=== PATIENT | female | born 1940 | race Caucasian/White ===

== ENCOUNTER 2018-01-19 19:32 | Emergency (ER) | payer MEDICAID ==
[~2018-01-19] VITALS: Ht 152.4 cm; Wt 80.7 kg
[~2018-01-19 19:32] MED LIST: AMOXICILLIN 50500 MG PO; LIDOCAINE VISC100 M1 SWISH&SPIT; MOBIC15 MG PO; NOHOMEMEDICATIONS; NORCO 5-325 TA1 EACH; PERCOCET 5-3251 EACH PO; TRAMADOL 50 MG50 MG PO; VICODIN 5-3001 EACH PO
[2018-01-19 19:53] LABS: URINE BILIRUBIN NEGATIVE (Negative); URINE BLOOD NEGATIVE (Negative); URINE CLARITY CLEAR; URINE COLOR YELLOW; URINE GLUCOSE-RANDOM NEGATIVE (Negative); URINE KETONES TRACE (Negative); URINE LEUKOCYTES-REFLEX NEGATIVE (Negative); URINE NITRITE-REFLEX NEGATIVE (Negative); URINE PROTEIN NEGATIVE (Negative); URINE SPECIFIC GRAVITY >= 1.030 (1.005-1.030); URINE UROBILINOGEN 0.2 E.U./dl (0.2-1.0)
[2018-01-19 20:07] LABS: ABSOLUTE MONOCYTES 0.4 thou/uL (0.0-1.2); ABSOLUTE NEUTROPHILS 3.8 thou/uL (1.6-8.1); BASOPHILS 0.6 %; HEMATOCRIT 36.4 % (37.0-47.0); HEMOGLOBIN 12.3 gm/dL (12.0-15.0); LYMPHOCYTES 41.8 %; MCH 29.3 pg (26.0-34.0); MCHC 33.8 g/dL (28.0-37.0); MCV 86.7 fL (80.0-100.0); MPV 8.5 fl. (7.2-11.1); NUCLEATED RBCS 0 /100WBC; PLATELET COUNT* 242 thou/uL (150-400); POLYS 51.6 %; RDW-CV 13.4 % (10.5-14.5); WBC 7.3 thou/uL (4.0-11.0)
[2018-01-19 20:15] LABS: CALCIUM 8.4 mg/dL (8.5-10.1); CREATININE 0.9 mg/dL (0.6-1.3); POTASSIUM 3.6 mmol/L (3.5-5.1)
[2018-01-19 20:19] LABS: ALBUMIN 3.9 g/dL (3.4-5.0); TOTAL BILIRUBIN 0.2 mg/dL (<0.1-1.0)
[2018-01-19] MEDS ORDERED: HYDROCODONE-AP1 EAC6 PO (21:27)
[2018-01-19] MEDS ORDERED: PHENERGAN 25 MG25 M1 PO (21:29)
[2018-01-19 21:47] VITALS: BP 189/101
== END 2018-01-19 21:48 | disposition home or self-care (01) ==
LOC: M.ERS 19:32
PROVIDERS: Physician Assistant
DX: R10.9 Unspecified abdominal pain (principal); M25.552 Pain in left hip; Z85.3 Personal history of malignant neoplasm of breast

== ENCOUNTER 2020-02-02 20:40 | Emergency (ER) | payer MEDICAID, MEDICARE ==
[~2020-02-02] VITALS: Ht 144.8 cm; Wt 72.6 kg
[~2020-02-02 20:40] MED LIST changes: +HYDROCODONE-AP1 EAC6 PO; +PHENERGAN 25 MG25 M1 PO
[2020-02-02 21:26] LABS: ABSOLUTE LYMPHOCYTES 2.4 thou/uL (0.8-5.3); ABSOLUTE MONOCYTES 0.4 thou/uL (0.0-1.2); ABSOLUTE NEUTROPHILS 2.8 thou/uL (1.6-8.1); BASOPHILS 0.5 %; HEMATOCRIT 37.2 % (37.0-47.0); HEMOGLOBIN 12.9 gm/dL (12.0-15.0); LYMPHOCYTES 41.9 %; MCH 29.3 pg (26.0-34.0); MCHC 34.6 g/dL (28.0-37.0); MCV 84.7 fL (80.0-100.0); MONOCYTES 7.9 %; MPV 8.5 fl. (7.2-11.1); NUCLEATED RBCS 0 /100WBC; PLATELET COUNT* 260 thou/uL (150-400); POLYS 49.7 %; RBC 4.39 mil/uL (4.20-5.00); RDW-CV 14.4 % (10.5-14.5); WBC 5.7 thou/uL (4.0-11.0)
[2020-02-02 21:30] LABS: CALCIUM 8.5 mg/dL (8.5-10.1); CREATININE 0.7 mg/dL (0.6-1.3); POTASSIUM 3.2 mmol/L (3.5-5.1)
[2020-02-02 21:35] LABS: APTT 22.8 Seconds (25.0-31.3)
[2020-02-02 21:40] LABS: ALBUMIN 4.2 g/dL (3.4-5.0); TOTAL BILIRUBIN 0.3 mg/dL (<0.1-1.0); TOTAL PROTEIN 7.6 g/dL (6.4-8.2)
[2020-02-02 22:25] VITALS: BP 177/98
--- NOTE | 2020-02-04 10:21 | EKG ---
[place] [address] ELECTROCARDIOGRAM REPORT Name: LUCY PERERA Room: [facility]#: [id number] Admission: 02/02/20 Attend Phys: Discharge: 02/02/20 Date of : 40 Date of Service: 02/02/202050 Report #: [id number] THIS REPORT FOR: //name// [facility] ED Test Date: 2020-02-02 Test Time: 20:51:33 Pat Name: LUCY PERERA Department: Room: Gender: F Molding Machine Setter: ANTONY : 1940 Requested By: Cheng Ortiz Order Number: [id number] MD: Mike Bingham Measurements Intervals [place] Rate: 84 P: 49 CT: 157 QRS: 8 QRSD: 92 T: 35 QT: 411 QTc: 486 Interpretive Statements Sinus rhythm Ventricular premature complex Abnormal R-wave progression, early transition Borderline prolonged QT interval Compared to ECG 03/15/2014 17:23:04 Ventricular premature complex(es) now present Electronically Signed On 02-04-2020 10:20:27 CDT by Mike Bingham [email or web address] <ELECTRONICALLY SIGNED> By: Mike Bingham MD, [facility] 02/04/20 1020 50 50 Mike Bingham MD, [facility] /EPI
== END 2020-02-02 22:25 | disposition home or self-care (01) ==
LOC: M.ERS 20:40
PROVIDERS: Family Medicine
DX: F41.9 Anxiety disorder, unspecified (principal); R06.02 Shortness of breath; I10 Essential (primary) hypertension; Z85.3 Personal history of malignant neoplasm of breast

== ENCOUNTER 2020-08-14 16:03 | Inpatient (IN) | payer MEDICAID ==
[~2020-08-14] VITALS: Ht 162.6 cm; Wt 73.9 kg
[2020-08-14 16:10] VITALS: BP 143/77
[2020-08-14 16:37] LABS: ABSOLUTE LYMPHOCYTES 4.1 thou/uL (0.8-5.3); ABSOLUTE MONOCYTES 0.5 thou/uL (0.0-1.2); ABSOLUTE NEUTROPHILS 3.6 thou/uL (1.6-8.1); BASOPHILS 0.4 %; HEMATOCRIT 38.6 % (37.0-47.0); HEMOGLOBIN 13.1 gm/dL (12.0-15.0); LYMPHOCYTES 50.3 %; MCH 29.3 pg (26.0-34.0); MCV 86.1 fL (80.0-100.0); MPV 8.6 fl. (7.2-11.1); NUCLEATED RBCS 0 /100WBC; PLATELET COUNT* 232 thou/uL (150-400); POLYS 43.3 %; RBC 4.48 mil/uL (4.20-5.00); RDW-CV 14.9 % (10.5-14.5); WBC 8.2 thou/uL (4.0-11.0)
[2020-08-14 16:46] LABS: CALCIUM 8.9 mg/dL (8.5-10.1); CREATININE 0.8 mg/dL (0.6-1.3); POTASSIUM 3.1 mmol/L (3.5-5.1)
[2020-08-14 16:57] LABS: ALBUMIN 4.4 g/dL (3.4-5.0); MAGNESIUM 1.8 mg/dL (1.8-2.4); TOTAL BILIRUBIN 0.3 mg/dL (<0.1-1.0); TOTAL PROTEIN 7.7 g/dL (6.4-8.2)
[2020-08-14 22:59] VITALS: BP 186/86
[2020-08-14 23:03] VITALS: BP 169/86
[2020-08-14] MEDS ORDERED: METFORMIN HCL500 M3 PO (23:26)
[2020-08-14] MEDS ORDERED: LISINOPRIL2.5 MG PO (23:27)
[2020-08-15 04:00] VITALS: BP 143/76
[2020-08-15 05:12] LABS: ABSOLUTE LYMPHOCYTES 2.4 thou/uL (0.8-5.3); ABSOLUTE MONOCYTES 0.5 thou/uL (0.0-1.2); BASOPHILS 0.5 %; HEMATOCRIT 38.5 % (37.0-47.0); LYMPHOCYTES 34.3 %; MCH 29.1 pg (26.0-34.0); MCHC 33.8 g/dL (28.0-37.0); MONOCYTES 7.5 %; MPV 8.6 fl. (7.2-11.1); NUCLEATED RBCS 0 /100WBC; PLATELET COUNT* 210 thou/uL (150-400); POLYS 57.7 %; RBC 4.47 mil/uL (4.20-5.00); RDW-CV 14.9 % (10.5-14.5)
[2020-08-15 05:44] LABS: CALCIUM 9.1 mg/dL (8.5-10.1); CREATININE 0.6 mg/dL (0.6-1.3)
[2020-08-15 05:45] LABS: POTASSIUM 4.3 mmol/L (3.5-5.1)
[2020-08-15 08:10] VITALS: BP 153/76
[2020-08-15] MEDS ORDERED: CRESTOR5 MG PO (10:11)
--- NOTE | 2020-08-15 10:16 | EKG ---
[place] [address] ELECTROCARDIOGRAM REPORT Name: LUCY PERERA Jinny Room: [address] M..#: [id number] Admission: 08/14/20 Attend Phys: Radhames Moody, Discharge: Date of : 40 Date of Service: 08/14/20 1609 Report #: [id number] THIS REPORT FOR: //name// [facility] ED Test Date: 2020-08-14 Test Time: 16:09:02 Pat Name: LUCY PERERA Department: Room: [facility] Gender: F Barber Stylist: MERT : 1940 Requested By: Vahe Henderson Order Number: [id number] MD: Mike Bingham Measurements Intervals [place] Rate: 81 P: 56 OR: 168 QRS: 11 QRSD: 88 T: 41 QT: 424 QTc: 493 Interpretive Statements Sinus rhythm Borderline prolonged QT interval Baseline wander in lead(s) V2 Compared to ECG 02/02/2020 20:51:33 Ventricular premature complex(es) no longer present Electronically Signed On 08-15-2020 10:16:27 CDT by Mike Bingham [email or web address] <ELECTRONICALLY SIGNED> By: Mike Bingham MD, FACC 08/15/20 1016 1609 1609 Mike Bingham MD, FACC /EPI
[2020-08-15] MEDS ORDERED: TYLENOL325 M1 PO (10:17)
[2020-08-15] MEDS ORDERED: JANUVIA25 MG PO (12:54)
--- NOTE | 2020-08-15 12:59 | 2DMMODE ---
[place] [address] 2 D/M-MODE ECHOCARDIOGRAM Name: LUCY PERERA Room: [address] IN .R.#: [id number] Admission: 08/15/20 Attend Phys: Radhames Moody, Discharge: Date of : 40 Date of Service: 08/15/20 1258 Report #: [id number] THIS REPORT FOR: cc: FAM - No family physician/PCP FAM - No family physician/PCP Mike Bingham MD [facility] ~ APPROVED REPORT Study performed: 08/15/2020 11:18:11 EXAM: Comprehensive 2D, Doppler, and color-flow Echocardiogram Patient Location: Bedside BSA: 1.80 HR: 82 bpm BP: 153/76 mmHg Other Information Study Quality: Adequate Indications Elevated BP Chest Pain 2D Dimensions IVSd: 12.13 (7-11mm) LVOT Diam: 19.99 (18-24mm) LVDd: 48.15 mm PWd: 11.54 (7-11mm) Ascending Ao: 31.61 (22-36mm) LVDs: 38.05 (25-40mm) Aortic Root: 27.74 mm Aortic Valve AoV Peak Smith.: 1.37 m/s AO Peak Gr.: 7.50 mmHg LVOT Max P.20 mmHg AO Mean Gr.: 4.01 mmHg LVOT Mean P.82 mmHg LVOT Max V: 0.89 m/s AO V2 VTI: 25.51 cm LVOT Mean V: 0.63 m/s TIN (VTI): 2.43 cm2 LVOT V1 VTI: 19.75 cm Mitral Valve E/A Ratio: 0.64 MV Decel. Time: 232.06 ms MV E Max Smith.: 0.48 m/s MV PHT: 67.30 [place] [address] 2 D/M-MODE ECHOCARDIOGRAM Name: LUCY PERERA Room: [address] IN [facility]#: [id number] Admission: 08/15/20 Attend Phys: Radhames Moody, Discharge: Date of : 40 Date of Service: 08/15/20 1258 Report #: [id number] MVA (PHT): 3.27 cm2 TDI E/Lateral E': 5.33 E/Medial E': 6.86 Medial E' Smith.: 0.07 m/s Lateral E' Smith.: 0.09 m/s Pulmonary Valve PV Peak Smith.: 0.82 m/s PV Peak Gr.: 2.67 mmHg Tricuspid Valve TR Peak Gr.: 24.62 mmHg Left Ventricle The left ventricle is normal size. There is normal LV segmental wall motion. Mild concentric left ventricular hypertrophy. Left ventricular systolic function is normal. The left ventricular ejection fraction is within the normal range. LVEF is 55-60%. Grade I - abnormal relaxation pattern. Right Ventricle The right ventricle is normal size. The right ventricular systolic function is normal. Atria The left atrium size is normal. The right atrium size is normal. Aortic Valve The aortic valve is normal in structure. Trace aortic regurgitation. There is no aortic valvular stenosis. Mitral Valve There is mitral annular calcification. The mitral valve is normal in structure. Mild mitral regurgitation. No evidence of mitral valve stenosis. Tricuspid Valve The tricuspid valve is normal in structure. Trace tricuspid regurgitation. Pulmonic Valve Pulmonic valve is not well visualized. There is no pulmonic valvular regurgitation[place] [address] 2 D/M-MODE ECHOCARDIOGRAM Name: LUCY PERERA Room: [address]#: [id number] Admission: 08/15/20 Attend Phys: Radhames Moody, Discharge: Date of : 40 Date of Service: 08/15/20 1258 Report #: [id number] The aortic root is normal in size. IVC is not well visualized. Pericardium There is no pericardial effusion. <Conclusion> Left ventricular systolic function is normal. The left ventricular ejection fraction is within the normal range. <ELECTRONICALLY SIGNED> By: Mike Bingham MD, FAC 08/15/20 1258 1258 1258 Mike Bingham MD, FAC /INF
[2020-08-15 13:09] VITALS: BP 109/56
--- NOTE | 2020-08-15 16:07 | CON ---
[address] [address] CONSULTATION Name: TREVERLUCY H Room: [address] IN .R.#: [id number] Admission: 08/15/20 Attend Phys: Radhames Moody MD Discharge: Date of : 40 Report #: [id number] THIS REPORT FOR: //name// cc: AGUSTIN Benz family physician/PCP AGUSTIN Benz family physician/PCP ~ THIS REPORT FOR: //name// CC: Radhames VELEZ physician/PCP DATE OF SERVICE: 08/15/2020 CARDIOLOGY CONSULTATION HISTORY OF PRESENT ILLNESS: The patient is a 79-year-old female who I was asked to see in the hospital today after she complained of being short of breath. The history is obtained from the patient's son who is present. The patient is originally from [place] and speaks no [place]ian. The patient was actually here in 2013 with an injury to her hand. She has no history of heart disease. She is not very active at this time. She predominantly receives her care at [facility]. She apparently was here 2 weeks ago to get her meds refilled. According to the son, yesterday she started feeling short of breath. There was no fever, cough or lower extremity edema. He denied any exposure to COVID-19. She denied a history of chest pain, palpitations, syncope or leg pain. The family brought her to the Emergency Room yesterday and she is admitted for further evaluation and treatment. PAST MEDICAL HISTORY: She had previous breast cancer treated with mastectomy in [facility] 25 years ago. She has a history of hypertension, diabetes. MEDICATIONS: Not available at this time, but apparently she takes pills for diabetes and blood pressure. ALLERGIES: There is no history of drug allergies. FAMILY HISTORY: Negative for heart disease. SOCIAL HISTORY: She is . She and her moved from [place] 20 years ago. No smoking or alcohol abuse. REVIEW OF SYSTEMS: There is no history of stroke, asthma, liver disease, kidney disease, chronic skin condition or psychiatric illness. PHYSICAL EXAMINATION: GENERAL: Revealed an elderly female, lying in bed. [place] [address] CONSULTATION Name: LUCY PERERA Room: [address]#: [id number] Admission: 08/15/20 Attend Phys: Radhames Moody MD Discharge: Date of : 40 Report #: [id number] VITAL SIGNS: She had a blood pressure 140/70, pulse is 80, she is afebrile. HEENT: She is anicteric. Conjunctivae are pink. NECK: Supple. CHEST: Clear to auscultation. CARDIOVASCULAR: Regular rate and rhythm, no murmur. ABDOMEN: Soft. EXTREMITIES: Had no edema, no Homans sign. Dorsalis pedis pulse 2+ bilaterally. SKIN: Cool and dry. NEUROLOGIC: Nonfocal. ECG in the Emergency Room yesterday showed a sinus rhythm. There was no significant ST or T-wave change noted. Her workup in the Emergency Room last night, she had a portable chest x-ray, which showed mild increasing interstitial lung markings in the bases. Heart size is normal. LABORATORY WORK: Potassium 4.3, creatinine 0.6, glucose 115. Troponin is all 0.06. BNP 224. White blood cell count 7.0, hematocrit 38.5. IMPRESSION AND RECOMMENDATIONS: 1. Shortness of breath. Reason unclear. Recommend echocardiogram. 2. Hypertension. Apparently, the patient is on medications. 3. Diabetes. Apparently, the patient takes oral medications. <ELECTRONICALLY SIGNED> By: Mike Bingham MD, FACC 08/15/20 1607 0951 [id number] Bingham MD, FACC /nt
[2020-08-15 19:35] VITALS: BP 147/88
[2020-08-15 23:45] VITALS: BP 131/78
[2020-08-16 04:00] VITALS: BP 125/62
[2020-08-16 05:14] LABS: CHOLESTEROL 137 mg/dL (<200); HDL CHOLESTEROL 52 mg/dL (>40); LDL CHOLESTEROL 61 mg/dL (<100); TC:HDL 2.6 Ratio (Not establshd); TRIGLYCERIDE 124 mg/dL (<150); VLDL 25 mg/dL (<40)
[2020-08-16 05:19] LABS: SERUM ASSESSMENT Clear
[2020-08-16 06:56] VITALS: BP 88/59
[2020-08-16 08:00] VITALS: BP 150/87
[2020-08-16] MEDS ORDERED: PRILOSEC OTC20 MG PO (11:34)
[2020-08-16] MEDS ORDERED: ASA81BEC PO (11:34)
[2020-08-16 15:43] VITALS: BP 150/87
== END 2020-08-16 16:05 | disposition home or self-care (01) | DRG 392 ==
LOC: M.ERS 16:03 → M.TBA-ER 17:33 → M.2W 17:33
PROVIDERS: Emergency Medicine Emergency Medical Services; Internal Medicine Cardiovascular Disease; ADMIT Internal Medicine; ATTEND Internal Medicine
DX: K21.9 Gastro-esophageal reflux disease without esophagitis (principal); I10 Essential (primary) hypertension; E11.9 Type 2 diabetes mellitus without complications; Z20.828 Contact with and (suspected) exposure to other viral communicable diseases; Z23 Encounter for immunization; Z85.3 Personal history of malignant neoplasm of breast; Z90.11 Acquired absence of right breast and nipple

== ENCOUNTER 2021-05-19 08:44 | Inpatient (IN) | payer MEDICAID ==
[~2021-05-19] VITALS: Ht 152.4 cm; Wt 79.2 kg
[~2021-05-19 08:44] MED LIST changes: +ASA81BEC PO; +CRESTOR5 MG PO; +JANUVIA25 MG PO; +LISINOPRIL2.5 MG PO; +METFORMIN HCL500 M3 PO; +PRILOSEC OTC20 MG PO; +TYLENOL325 M1 PO
[2021-05-19 08:55] VITALS: BP 183/90
[2021-05-19 09:21] LABS: ABSOLUTE LYMPHOCYTES 1.7 thou/uL (0.8-5.3); ABSOLUTE MONOCYTES 0.4 thou/uL (0.0-1.2); ABSOLUTE NEUTROPHILS 5.2 thou/uL (1.6-8.1); BASOPHILS 0.3 %; HEMATOCRIT 35.5 % (37.0-47.0); HEMOGLOBIN 12.3 gm/dL (12.0-15.0); LYMPHOCYTES 22.7 %; MCH 29.7 pg (26.0-34.0); MCHC 34.7 g/dL (28.0-37.0); MCV 85.4 fL (80.0-100.0); MPV 8.3 fl. (7.2-11.1); NUCLEATED RBCS 0 /100WBC; PLATELET COUNT* 207 thou/uL (150-400); RBC 4.16 mil/uL (4.20-5.00); RDW-CV 14.3 % (10.5-14.5); WBC 7.3 thou/uL (4.0-11.0)
[2021-05-19 09:27] LABS: CALCIUM 8.7 mg/dL (8.5-10.1); CREATININE 0.7 mg/dL (0.6-1.3); POTASSIUM 3.5 mmol/L (3.5-5.1)
[2021-05-19 09:36] LABS: ALBUMIN 4.1 g/dL (3.4-5.0); MAGNESIUM 1.7 mg/dL (1.8-2.4); TOTAL BILIRUBIN 0.5 mg/dL (<0.1-1.0); TOTAL PROTEIN 7.5 g/dL (6.4-8.2)
--- NOTE | 2021-05-19 14:37 | EKG ---
[place] [address] ELECTROCARDIOGRAM REPORT Name: TREVERLUCY Jinny Room: [place] [address] ADM IN ..#: [id number] Admission: 05/19/21 Attend Phys: Sherri Singleton, Discharge: Date of : 40 Date of Service: 05/19/21 0857 Report #: [id number] THIS REPORT FOR: //name// [facility] ED Test Date: 2021-05-19 Test Time: 08:57:29 Pat Name: LUCY PERERA Department: Room: [facility] Gender: F Software Specialist: DOROTHEA : 1940 Requested By: Vahe Henderson Order Number: [id number] MD: Dov Wan Measurements Intervals [place] Rate: 79 P: 34 IA: 146 QRS: -1 QRSD: 89 T: 40 QT: 387 QTc: 444 Interpretive Statements Sinus rhythm Abnormal R-wave progression, early transition Nonspecific ST segment depression Compared to ECG 08/14/2020 16:09:02 No significant changes Electronically Signed On 05-19-2021 14:37:47 CDT by Dov Wan [email or web address] <ELECTRONICALLY SIGNED> By: Dov Wan MD, FACC 05/19/21 1437 0857 0857 Dov Wan MD, FAC /EPI
[2021-05-19 14:44] VITALS: BP 157/69
[2021-05-19 15:23] LABS: URINE BILIRUBIN NEGATIVE (Negative); URINE BLOOD NEGATIVE (Negative); URINE CLARITY CLEAR; URINE COLOR YELLOW; URINE GLUCOSE-RANDOM NEGATIVE (Negative); URINE KETONES NEGATIVE (Negative); URINE LEUKOCYTES-REFLEX NEGATIVE (Negative); URINE NITRITE-REFLEX NEGATIVE (Negative); URINE PROTEIN NEGATIVE (Negative); URINE UROBILINOGEN 0.2 E.U./dl (0.2-1.0)
[2021-05-19 16:30] VITALS: BP 170/88
== END 2021-05-19 18:30 | disposition left against medical advice (07) | DRG 440 ==
LOC: M.ERS 08:44 → M.TBA-ER 10:59 → M.2W 16:58
PROVIDERS: Emergency Medicine Emergency Medical Services; ADMIT Internal Medicine; ATTEND Internal Medicine
DX: K85.90 Acute pancreatitis without necrosis or infection, unspecified (principal); I10 Essential (primary) hypertension; E11.9 Type 2 diabetes mellitus without complications; Z20.822 Contact with and (suspected) exposure to COVID-19; Z53.29 Procedure and treatment not carried out because of patient's decision for other reasons; R93.89 Abnormal findings on diagnostic imaging of other specified body structures; Z79.82 Long term (current) use of aspirin; Z85.3 Personal history of malignant neoplasm of breast; Z90.11 Acquired absence of right breast and nipple; Z79.899 Other long term (current) drug therapy

== ENCOUNTER 2021-05-19 19:58 | Emergency (ER) | payer MEDICAID ==
[~2021-05-19] VITALS: Ht 152.4 cm; Wt 77.1 kg
[2021-05-19 21:55] VITALS: BP 156/86
== END 2021-05-19 21:55 | disposition left against medical advice (07) ==
LOC: M.ERS 19:58
DX: R10.9 Unspecified abdominal pain (principal); Z53.21 Procedure and treatment not carried out due to patient leaving prior to being seen by health care provider